=== PATIENT | male | born 1990 | race Caucasian/White ===

== ENCOUNTER 2022-07-16 10:35 | Emergency (ER) | payer OTHER, SELFPAY ==
--- NOTE | ~2022-07-16 | CT_ITS ---
Clinical Indication: Shortness of breath CT Scan of the Chest with Contrast: Technique: Contiguous sections were acquired throughout the chest after intravenous administration of 200 cc of Omnipaque 350. Dose reduction technique was used on this scan by utilizing automated expos ure control and iterative reconstruction technique. The dose-length product (DLP) was 1094.60 mGy-cm. Findings: There is no evidence of any significant mediastinal, hilar or axillary lymphadenopathy. There is no f illing defect in the pulmonary arterial tree to suggest pulmonary embolus. There is no evidence of ao rtic dissection or aneurysm. There is no evidence of pleural or pericardial effusion. There are bibasilar atelectatic changes. No suspicious pulmonary nodule seen. Images through the upper abdomen reveal diffuse fatty infiltration of the liver. Impression: No evidence of pulmonary embolus, aortic dissection, or aortic aneurysm. Bibasilar atelectatic change. Reviewed, dictated and finalized at [facility]. Impression: No evidence of pulmonary embolus, aortic dissection, or aortic aneurysm. Bibasilar atelectatic change.
--- NOTE | ~2022-07-16 | XR_ITS ---
Clinical Indication: Cough PA and lateral views of the chest: Comparison: None Findings: Probable retrocardiac atelectatic change. No pleural effusion or pneumothorax. Cardiomedia stinal silhouette is within normal limits. Bones and soft tissues are unremarkable. Impression: Probable retrocardiac atelectatic change, otherwise clear lungs. Reviewed, dictated and finalized at location . Impression: Probable retrocardiac atelectatic change, otherwise clear lungs.
--- NOTE | ~2022-07-16 | CT_ITS ---
EXAMINATION: CT sinus wo con DATE: 07/16/2022 14:02 INDICATION: Sinus pain, fever and headache TECHNIQUE: Computed tomography (CT) of the paranasal sinuses was performed without intravenous contra st. Coronal reconstructions were obtained. Iterative reconstruction technique was employed. The dose- length product was 334.42 mGy-cm. COMPARISON: None FINDINGS: Extensive mucosal thickening throughout the paranasal sinuses. In addition there is dependently layer ing fluid/mucus resulting in near complete opacification of the bilateral maxillary sinuses as well a s opacification of many of the bilateral anterior ethmoid air cells and frontoethmoidal recesses. The re is occlusion of the bilateral frontoethmoidal recesses. No evident osseous erosion. Likely develop mental mild rightward bowing of the nasal septum which parallels the contours of the turbinates. Orbi ts are normal. Mastoid air cells and middle ear cavities are clear. IMPRESSION: 1. Pansinusitis. Reviewed, dictated and finalized at location [facility]. IMPRESSION: 1. Pansinusitis.
[2022-07-16 10:45] VITALS: BP 148/104; PULSE 124; RESP 18; TEMP 37.3; O2SAT 95
[2022-07-16 10:58] VITALS: O2SAT 95
[2022-07-16 11:08] LABS: Basophils Absolute Auto 0.1 K/mm3 (0.0-0.1); Basophils Percent Auto 0.4 % (0.2-1.2); Eosinophils Absolute Auto 0.3 K/mm3 (0-0.3); Eosinophils Percent Auto 1.1 % (0-4.4); Hematocrit 48.2 % (42.0-52.0); Hemoglobin 16.9 g/dL (14.0-18.0); Immature Granulocyte Absolute 0.16 K/mm3 (0.00-0.031); Immature Granulocyte Percent A 0.6 % (0-0.5); Lymphocytes Absolute Auto 2.73 K/mm3 (0.9-3.2); Mean Corpuscular HGB Conc 35.1 g/dl (32-36); Mean Corpuscular Hemoglobin 29.4 pg (26-34); Mean Corpuscular Volume 83.8 fl (80-100); Mean Platelet Volume 8.4 fl (7.4-10.4); Monocytes Absolute Auto 2.3 K/mm3 (0.1-0.6); Monocytes Percent Auto 9.2 % (2.6-8.5); Neutrophils Absolute Auto 19.4 K/mm3 (1.3-6.7); Neutrophils Percent Auto 77.7 % (45.5-73.1); Platelet Count Result 494 k/mm3 (150-375); Red Blood Count 5.75 M/mm3 (4.6-6.20); Red Cell Distribution Width 12.4 % (11.5-14.5); White Blood Count 24.9 K/mm3 (4.5-10.0)
[2022-07-16 11:18] LABS: Alanine Aminotransferase 77 U/L (6-50); Albumin Level 4.8 g/dL (3.5-5.1); Alkaline Phosphatase 120 U/L (38-126); Anion Gap 11 mmol/L (8-16); Aspartate Amino Transferase 37 U/L (17-59); Blood Urea Nitrogen 8 mg/dL (9-20); Calcium 9.6 mg/dL (8.4-10.2); Carbon Dioxide 26 mmol/L (22-30); Chloride 99 mmol/L (98-107); Estimated CRCL calculation 121 ml/min; Estimated Glomerular Filt Rate > 60; Glucose 126 mg/dL (65-110); Potassium 3.8 mmol/L (3.4-5.0); Sodium 136 mmol/L (137-145)
--- NOTE | 2022-07-16 11:24 | ED.SOB ---
HPI - SOB/Dyspnea General Chief Complaint: Shortness of Breath/Dyspnea Stated Complaint: short of breath, cough, congestion Time Seen by Provider: 07/16/22 10:51 History of Present Illness HPI Narrative: Patient is a 32-year-old male presenting with cough and shortness of breath. Patient states that earlier this month he had a cold which went away after a couple of days. Unfortunately about a week later he again developed cough and shortness of breath. States that he has been coughing up a lot of green phlegm. He went to urgent care today who advised that he come to the ER as he was tachycardic and they did not have x-ray capabilities. Patient states that taking a big breath causes coughing fits. He denies pain with breathing. He denies any chest pain actually. Reports mild frontal headache. No numbness or weakness, vision changes, speech changes. States that he feels nauseated when he swallows too much phlegm. Reports decreased appetite. No leg swelling, dysuria, hematuria, abdominal pain, diarrhea. Related Data Allergies Allergy/AdvReac Type Severity Reaction Status Date / Time No Known Allergies Allergy Verified 07/16/22 10:57 Review of Systems Review of Systems: All systems reviewed & are unremarkable except as noted in HPI and below Exam Narrative: GENERAL: ill appearing, in no acute distress, cooperative and pleasant HEAD: Normocephalic, atraumatic. EYES: PERRLA and EOMI. ENT: +nasal congestion, mucous membranes moist NECK: Supple. CHEST: Clear to auscultation, no crackles or wheezing, no respiratory distress HEART: Tachycardic, regular rhythm ABDOMEN: Soft, nontender, nondistended EXTREMITIES: Normal range of motion. No edema. SKIN: Warm, dry, no rash. NEURO: No focal deficits. Alert and oriented x3. PSYCH: Normal mood and affect. Course Vital Signs Vital signs: Vital Signs Temperature 99.1 F 07/16/22 10:45 Pulse Rate 124 H 07/16/22 10:45 Respiratory Rate 18 07/16/22 10:45 Blood Pressure 148/104 H 07/16/22 10:45 Pulse Oximetry 95 07/16/22 10:45 Oxygen Delivery Room Air 07/16/22 10:45 Temperature 99.1 F 07/16/22 10:45 Pulse Rate 94 07/16/22 15:15 Respiratory Rate 18 07/16/22 15:15 Blood Pressure 137/92 H 07/16/22 15:15 Pulse Oximetry 96 07/16/22 15:15 Oxygen Delivery Room Air 07/16/22 10:58 MDM - SOB/Dyspnea MDM Narrative Medical decision making narrative: Patient is a 32-year-old male presenting with cough and shortness of breath. Patient is a bit hypertensive and tachycardic in the 120s. Saturating well on room air. Exam remarkable for the above. Plan for blood work, CT chest, fluids, antibiotics. CT chest shows atelectatic changes but no focal consolidations. There is no pulmonary embolus. Patient does report that he has not been taking deep breaths because it causes coughing fits. Blood work is concerning for pretty significant leukocytosis with a white count of 24. As there is no obvious pneumonia on his chest CT, decision made to order CT sinuses. CT sinuses concerning for pansinusitis. Patient reports greater than 10 days of symptoms so we will go ahead and cover him with Augmentin. On reevaluation, the patient states that he does feel improved. States that his breathing continues to feel well. Discussed the findings. He feels comfortable going home. He does not have a primary care provider in the area so we will provide referral for 1. Advised that he complete the antibiotics as prescribed. Strict return precautions were given. Patient voiced understanding and is agreeable with plan. Discharged in stable condition. Differential Diagnosis Differential diagnosis: Likely community acquired pneumonia, pulmonary embolism and other (sinusitis, viral URI) Lab Data 07/16/22 11:00 07/16/22 11:00 Labs: Lab Results 07/16/22 07/16/22 07/16/22 Range/Units 11:00 11:00 11:02 WBC 24.9 H (4.5-10.0) K/mm3 RBC 5
[2022-07-16 11:29] VITALS: BP 138/72; PULSE 118; RESP 24; O2SAT 94
--- NOTE | 2022-07-16 11:29 | PC.NURSE ---
Pt to XRAY via stretcher at this time.
[2022-07-16] MEDS: KETOROLAC 15 MG/ML VIAL (*BKC) IV PUSH (11:36)
[2022-07-16] MEDS: SODIUM CHLORIDE 0.9% IV 1,000 ML 999 ML IV CONT ×2 (11:36→12:19)
[2022-07-16 11:45] LABS: Lactic Acid Reflex 1.3 mmol/L (0.7-2.0)
[2022-07-16 11:47] LABS: Influenza A QL RT-PCR Negative (Negative); Influenza B QL RT-PCR Negative (Negative); RSV RNA, RT-PCR Negative (Negative); SARS-CoV-2 RNA PCR Negative
[2022-07-16 12:19] VITALS: BP 132/80; PULSE 107; RESP 22; O2SAT 93
[2022-07-16 15:15] VITALS: BP 137/92; PULSE 94; RESP 18; O2SAT 96
== END 2022-07-16 16:11 | disposition home or self-care (01) ==
PROVIDERS: Emergency Provider Emergency Medicine
DX: J32.4 Chronic pansinusitis (principal); R05.9 Cough, unspecified; Z20.822 Contact with and (suspected) exposure to COVID-19
CPT/HCPCS: 36415; 70486; 71046; 71275; 80053; 83605; 85025; 87040; 87637; 96361; 96365; 96375; 99284; J0456; J0696; J1885; J7030; Q9967